=== PATIENT | male | born 1965 | race Caucasian/White ===

== ENCOUNTER 2021-05-22 14:07 | Inpatient (IN) | payer SELFPAY ==
[2021-05-22] MEDS ORDERED: LORazepam 2 MG/ML SDV VIAL IVPUSH ONE ×3 (15:07→20:46)
[2021-05-22] MEDS ORDERED: ONDANSETRON 4 MG/2 ML VIAL IVPUSH ONE (15:08)
[2021-05-22] MEDS ORDERED: SODIUM CHLORIDE 0.9% 500 ML INFUS.BAG IV ONE ×2 (15:08→17:16)
[2021-05-22] MEDS ORDERED: LORazepam 2 MG/ML SDV VIAL ONE ×3 (15:16→21:05)
[2021-05-22] MEDS ORDERED: ONDANSETRON 4 MG/2 ML VIAL ONE (15:17)
[2021-05-22 15:34] LABS: BASO % 0.8 % (0-2.0); HEMATOCRIT 36.3 % (35.4-49); HEMOGLOBIN 12.8 GM/dL (11.7-16.9); LYMPH % 7.4 % (8-40); MCH 33.5 pg (25.7-33.7); MCHC 35.3 g/dl (32.0-35.9); MEAN CELL VOLUME 94.8 fl (80-96); MEAN PLT VOLUME 6.4 fl (7.5-11.1); MONO % 8.7 % (3.8-10.2); NEUT % 83.1 % (42.8-82.8); PLATELET COUNT 149 10^3/uL (134-434); RBC 3.83 M/mm3 (4.00-5.60); RDW 14.2 % (11.9-15.9); WHITE BLOOD COUNT 5.6 K/mm3 (4.0-10.0)
[2021-05-22 15:55] LABS: CALCIUM 8.3 mg/dL (8.5-10.1)
[2021-05-22 15:56] LABS: ALBUMIN 3.7 g/dl (3.4-5.0); BLOOD UREA NITROGEN 6.1 mg/dL (7-18); MAGNESIUM 2.1 mg/dL (1.8-2.4)
[2021-05-22 15:59] LABS: CREATININE 1.6 mg/dL (0.55-1.3); PHOSPHOROUS 2.7 mg/dL (2.5-4.9)
[2021-05-22 16:00] LABS: BILIRUBIN,TOTAL 0.5 mg/dL (0.2-1); TOT PROT 7.8 g/dl (6.4-8.2)
[2021-05-22] MEDS ORDERED: FOLIC ACID INJECTION - 1 MG, THIAMINE HCL 100 MG, MULTIVIT INJECTION ADULT 10 ML in SOD... IVPB ONE ×2 (16:06→23:25)
[2021-05-22 16:26] LABS: VENOUS BASE EXCESS 3.3 mmol/L (-2-2); VENOUS PCO2 39.8 mmHg (38-52); VENOUS PH 7.455 (7.310-7.410)
[2021-05-22 16:48] LABS: INR 1.11 (0.83-1.09); PROTHROMBIN TIME (PATIENT) 13.6 SEC (9.7-13.0)
[2021-05-22 16:49] LABS: LACTIC ACID 3.3 mmol/L (0.4-2.0)
[2021-05-22 16:51] LABS: ACTIVATED PTT 26.3 SECONDS (25.2-36.5)
[2021-05-22] MEDS ORDERED: LORazepam 2 MG TABLET PO SCH (23:00)
[2021-05-22] MEDS ORDERED: LACTATED RINGERS SOLUTION 1,000 ML IV SCH (23:15)
[2021-05-22] MEDS ORDERED: LORazepam 1 MG TABLET PO PRN (23:22)
[2021-05-23] MEDS ORDERED: LORazepam 1 MG TABLET ONE ×3 (05:30→17:04)
[2021-05-23] MEDS: LORazepam 1 MG TABLET PO SCH ×4 (05:33→23:59)
[2021-05-23] MEDS: INSULIN SLIDING SCALE (NOVOLOG) 1 VIAL SQ SCH ×2 (07:58→11:07)
[2021-05-23 08:24] LABS: BASO % 1.1 % (0-2.0); EOS % 0.4 % (0-4.5); HEMATOCRIT 35.8 % (35.4-49); HEMOGLOBIN 12.6 GM/dL (11.7-16.9); LYMPH % 16.7 % (8-40); MCH 34.1 pg (25.7-33.7); MCHC 35.2 g/dl (32.0-35.9); MEAN CELL VOLUME 96.7 fl (80-96); MEAN PLT VOLUME 7.1 fl (7.5-11.1); MONO % 9.2 % (3.8-10.2); NEUT % 72.6 % (42.8-82.8); PLATELET COUNT 144 10^3/uL (134-434); RBC 3.71 M/mm3 (4.00-5.60); RDW 14.4 % (11.9-15.9)
[2021-05-23 08:45] LABS: CHLORIDE 97 mmol/L (98-107); SODIUM 133 mmol/L (136-145)
[2021-05-23 08:48] LABS: CALCIUM 8.2 mg/dL (8.5-10.1)
[2021-05-23 08:49] LABS: ALBUMIN 3.6 g/dl (3.4-5.0); ANION GAP 11 MMOL/L (8-16); CO2 25 mmol/L (21-32); GLUCOSE,RANDOM 122 mg/dL (74-106); MAGNESIUM 2.2 mg/dL (1.8-2.4)
[2021-05-23 08:51] LABS: SGOT/AST 112 U/L (15-37); SGPT/ALT 129 U/L (13-61)
[2021-05-23 08:52] LABS: CREATININE 1.7 mg/dL (0.55-1.3); PHOSPHOROUS 3.3 mg/dL (2.5-4.9)
[2021-05-23 08:53] LABS: BILIRUBIN,TOTAL 1.1 mg/dL (0.2-1); TOT PROT 7.4 g/dl (6.4-8.2)
[2021-05-23 08:54] LABS: ALK PHOS 96 U/L (45-117)
[2021-05-23] MEDS ORDERED: PANTOPRAZOLE SODIUM 40 MG VIAL ONE (09:47)
[2021-05-23] MEDS: PANTOPRAZOLE SODIUM 40 MG VIAL IVPUSH SCH (09:58)
[2021-05-23] MEDS ORDERED: ENOXAPARIN NA (PORCINE) 40 MG/0.4 ML DISP.SYRIN SQ SCH (10:00)
[2021-05-23 10:51] LABS: EPI CELLS 1 /uL (0-25.1); HYALINE CASTS 0 /uL (0-3.1); URINE APPEARANCE CLEAR; URINE BACTERIA 1 /uL (0-1359); URINE BILIRUBIN NEGATIVE (NEGATIVE); URINE COLOR YELLOW; URINE GLUCOSE (UA) NEGATIVE (NEGATIVE); URINE KETONE 1+ (NEGATIVE); URINE LEUK ESTERASE NEGATIVE (NEGATIVE); URINE NITRITE NEGATIVE (NEGATIVE); URINE PROTEIN 1+ (NEGATIVE); URINE RBC 22 /uL (0-23.9); URINE WBC 1 /uL (0-25.8)
[2021-05-23 11:04] LABS: COCAINE, UR NEGATIVE (NEGATIVE); OPIATES, URI NEGATIVE (NEGATIVE); URINE BARBITURATES NEGATIVE (NEGATIVE); URINE BENZODIAZEPINES NEGATIVE (NEGATIVE)
[2021-05-23 11:05] LABS: PHENCYCLIDINE,URINE NEGATIVE (NEGATIVE)
[2021-05-23 11:24] LABS: METHADONE, UR NEGATIVE (NEGATIVE); URINE AMPHETAMINES NEGATIVE (NEGATIVE)
[2021-05-23] MEDS ORDERED: QUEtiapine FUMARATE 25 MG TABLET PO ONE (11:28)
[2021-05-23] MEDS ORDERED: QUEtiapine FUMARATE 25 MG TABLET ONE (12:38)
[2021-05-23] MEDS ORDERED: LACTATED RINGERS SOLUTION 1,000 ML/1,000 ML INFUS.BAG IV SCH (13:30)
[2021-05-23] MEDS ORDERED: SODIUM CHLORIDE 1,000 ML IV SCH (13:30)
[2021-05-23] MEDS: DEXTROSE 5%-LACTATED RINGERS 1,000 ML IV SCH (15:30)
[2021-05-23] MEDS ORDERED: ACETAMINOPHEN 1000 MG/100 ML VIAL (NON FORMULARY) IVPB PRN ×2 (16:45→16:51)
[2021-05-23] MEDS ORDERED: ACETAMINOPHEN INJECTION 100 ML IVPB ONE (20:08)
[2021-05-24 01:25] VITALS: BMI 25.2
[2021-05-24] MEDS: DEXTROSE 5%-LACTATED RINGERS 1,000 ML IV SCH ×3 (02:36→17:05)
[2021-05-24] MEDS: LORazepam 1 MG TABLET PO SCH ×4 (05:39→23:17)
[2021-05-24 07:44] LABS: BASO % 1.2 % (0-2.0); EOS % 2.5 % (0-4.5); HEMOGLOBIN 12.8 GM/dL (11.7-16.9); LYMPH % 18.2 % (8-40); MCH 34.2 pg (25.7-33.7); MCHC 35.4 g/dl (32.0-35.9); MEAN CELL VOLUME 96.4 fl (80-96); MEAN PLT VOLUME 7.5 fl (7.5-11.1); MONO % 10.1 % (3.8-10.2); PLATELET COUNT 142 10^3/uL (134-434); RBC 3.74 M/mm3 (4.00-5.60); RDW 14.3 % (11.9-15.9); WHITE BLOOD COUNT 4.4 K/mm3 (4.0-10.0)
[2021-05-24 08:06] LABS: CALCIUM 8.1 mg/dL (8.5-10.1)
[2021-05-24 08:07] LABS: ALBUMIN 3.1 g/dl (3.4-5.0); BLOOD UREA NITROGEN 6.8 mg/dL (7-18)
[2021-05-24 08:10] LABS: CREATININE 1.2 mg/dL (0.55-1.3)
[2021-05-24 08:11] LABS: BILIRUBIN,TOTAL 1.3 mg/dL (0.2-1); TOT PROT 6.8 g/dl (6.4-8.2)
[2021-05-24 08:12] LABS: INR 1.06 (0.83-1.09)
[2021-05-24] MEDS: PANTOPRAZOLE SODIUM 40 MG VIAL IVPUSH SCH (09:08)
[2021-05-25] MEDS ORDERED: LORazepam 0.5 MG TABLET PO PRN
[2021-05-25] MEDS ORDERED: MORPHINE SULFATE 2 MG/ML VIAL IVPUSH ONE (00:09)
[2021-05-25] MEDS ORDERED: POTASSIUM CHLORIDE TABS 20 MEQ TABLET.ER (FP) PO ONE ×2 (00:10→09:14)
[2021-05-25] MEDS: DEXTROSE 5%-LACTATED RINGERS 1,000 ML IV SCH ×2 (00:59→07:56)
[2021-05-25] MEDS: LORazepam 0.5 MG TABLET PO SCH ×4 (05:20→22:03)
[2021-05-25 07:28] LABS: BASO % 0.7 % (0-2.0); EOS % 4.5 % (0-4.5); HEMATOCRIT 37.6 % (35.4-49); HEMOGLOBIN 13.3 GM/dL (11.7-16.9); LYMPH % 17.5 % (8-40); MCH 34.3 pg (25.7-33.7); MCHC 35.4 g/dl (32.0-35.9); MEAN CELL VOLUME 96.9 fl (80-96); MEAN PLT VOLUME 7.5 fl (7.5-11.1); MONO % 7.3 % (3.8-10.2); PLATELET COUNT 160 10^3/uL (134-434); RBC 3.89 M/mm3 (4.00-5.60); RDW 14.5 % (11.9-15.9); WHITE BLOOD COUNT 5.2 K/mm3 (4.0-10.0)
[2021-05-25 07:35] LABS: INR 1.03 (0.83-1.09); PROTHROMBIN TIME (PATIENT) 12.7 SEC (9.7-13.0)
[2021-05-25 07:54] LABS: ALBUMIN 3.2 g/dl (3.4-5.0); BLOOD UREA NITROGEN 4.6 mg/dL (7-18); CALCIUM 8.3 mg/dL (8.5-10.1)
[2021-05-25 07:57] LABS: CREATININE 0.7 mg/dL (0.55-1.3)
[2021-05-25 07:58] LABS: BILIRUBIN,TOTAL 1.6 mg/dL (0.2-1)
[2021-05-25 09:48] LABS: PHOSPHOROUS 2.8 mg/dL (2.5-4.9)
[2021-05-26] MEDS ORDERED: LORazepam 0.5 MG TABLET PO ONE (05:00)
[2021-05-26 07:48] LABS: BASO % 0.9 % (0-2.0); EOS % 4.5 % (0-4.5); HEMATOCRIT 39.9 % (35.4-49); HEMOGLOBIN 14.1 GM/dL (11.7-16.9); LYMPH % 15.8 % (8-40); MCH 34.3 pg (25.7-33.7); MCHC 35.4 g/dl (32.0-35.9); MEAN PLT VOLUME 7.6 fl (7.5-11.1); MONO % 7.4 % (3.8-10.2); NEUT % 71.4 % (42.8-82.8); PLATELET COUNT 203 10^3/uL (134-434); RBC 4.11 M/mm3 (4.00-5.60); RDW 14.5 % (11.9-15.9); WHITE BLOOD COUNT 6.2 K/mm3 (4.0-10.0)
[2021-05-26 07:52] LABS: INR 1.09 (0.83-1.09); PROTHROMBIN TIME (PATIENT) 13.1 SEC (9.7-13.0)
[2021-05-26 07:59] LABS: BLOOD UREA NITROGEN 14.6 mg/dL (7-18); CALCIUM 8.6 mg/dL (8.5-10.1)
[2021-05-26 08:00] LABS: ALBUMIN 3.4 g/dl (3.4-5.0); ALBUMIN 3.5 g/dl (3.4-5.0); MAGNESIUM 2.1 mg/dL (1.8-2.4)
[2021-05-26 08:03] LABS: BILIRUBIN,DIRECT 0.6 mg/dL (0.0-0.2); CREATININE 0.7 mg/dL (0.55-1.3)
[2021-05-26 08:04] LABS: BILIRUBIN,TOTAL 1.4 mg/dL (0.2-1); PHOSPHOROUS 3.1 mg/dL (2.5-4.9); TOT PROT 7.6 g/dl (6.4-8.2)
[2021-05-26 08:05] LABS: BILIRUBIN,TOTAL 1.4 mg/dL (0.2-1); TOT PROT 7.4 g/dl (6.4-8.2)
[2021-05-26] MEDS: TAMSULOSIN HCL 0.4 MG CAP PO SCH (09:35)
[2021-05-27 07:19] LABS: HEMATOCRIT 38.8 % (35.4-49); HEMOGLOBIN 13.9 GM/dL (11.7-16.9); MCH 34.8 pg (25.7-33.7); MCHC 35.8 g/dl (32.0-35.9); MEAN CELL VOLUME 97.1 fl (80-96); MEAN PLT VOLUME 7.4 fl (7.5-11.1); PLATELET COUNT 244 10^3/uL (134-434); RBC 3.99 M/mm3 (4.00-5.60); RDW 14.7 % (11.9-15.9); WHITE BLOOD COUNT 6.8 K/mm3 (4.0-10.0)
[2021-05-27 07:36] LABS: ALBUMIN 3.4 g/dl (3.4-5.0); BLOOD UREA NITROGEN 18.3 mg/dL (7-18); CALCIUM 8.6 mg/dL (8.5-10.1); MAGNESIUM 2.3 mg/dL (1.8-2.4)
[2021-05-27 07:39] LABS: ALBUMIN 3.5 g/dl (3.4-5.0); CREATININE 0.7 mg/dL (0.55-1.3)
[2021-05-27 07:40] LABS: PHOSPHOROUS 3.9 mg/dL (2.5-4.9)
[2021-05-27 07:41] LABS: BILIRUBIN,TOTAL 1.1 mg/dL (0.2-1); TOT PROT 7.6 g/dl (6.4-8.2)
[2021-05-27 07:42] LABS: BILIRUBIN,DIRECT 0.4 mg/dL (0.0-0.2)
[2021-05-27 07:43] LABS: BILIRUBIN,TOTAL 1.1 mg/dL (0.2-1)
[2021-05-27 07:44] LABS: TOT PROT 7.6 g/dl (6.4-8.2)
[2021-05-27] MEDS: TAMSULOSIN HCL 0.4 MG CAP PO SCH (09:07)
[2021-05-27 09:33] VITALS: BP 136/80; PULSE 94; TEMP 98
== END 2021-05-27 18:31 | disposition home or self-care (01) | DRG 282 ==
LOC: JER 14:07 → JERBED 18:26 → J7W 05-23 23:38
PROVIDERS: ADMIT Internal Medicine; ATTEND Internal Medicine
DX: K85.20 Alcohol induced acute pancreatitis without necrosis or infection (principal); F10.239 Alcohol dependence with withdrawal, unspecified; E87.2 Acidosis; K92.0 Hematemesis; N17.9 Acute kidney failure, unspecified; M62.82 Rhabdomyolysis; J98.11 Atelectasis; K86.0 Alcohol-induced chronic pancreatitis; K70.9 Alcoholic liver disease, unspecified; I10 Essential (primary) hypertension; K76.0 Fatty (change of) liver, not elsewhere classified; R10.13 Epigastric pain; K80.20 Calculus of gallbladder without cholecystitis without obstruction; R74.01 Elevation of levels of liver transaminase levels; R25.1 Tremor, unspecified; R25.3 Fasciculation; R51.9 Headache, unspecified; R06.02 Shortness of breath; R19.7 Diarrhea, unspecified; R35.0 Frequency of micturition; R73.9 Hyperglycemia, unspecified; N40.1 Benign prostatic hyperplasia with lower urinary tract symptoms; E87.1 Hypo-osmolality and hyponatremia; E87.6 Hypokalemia
CPT/HCPCS: 36415; 70450-TC; 71045-TC-FY; 71250-TC; 74177-TC; 74181-TC; 76705-TC; 76775-TC; 80053; 80076; 80307; 81003; 82010; 82140; 82150; 82550; 82553; 82803; 82962; 83036; 83605; 83690; 83735; 84100; 84484; 85025; 85027; 85610; 85730; 86140; 86706; 86708; 87086; 87340; 87517; 87522; 93005; 93010; 97116-GP; 97161-GP; 99285-25; C9803; J0131; Q9967; U0003; U0005